=== PATIENT | female | born 1955 | race African-American/Black ===

== ENCOUNTER 2017-03-23 10:29 | Emergency (ER) | payer BC ==
[~2017-03-23] VITALS: Ht 172.7 cm; Wt 95.3 kg
[2017-03-23 10:39] VITALS: BP 144/67
[2017-03-23] MEDS ORDERED: CETIRIZINE HCL 10 MG TABLET. PO STA (11:16)
[2017-03-23] MEDS ORDERED: predniSONE 20 MG TABLET PO ONE (11:30)
[2017-03-23] MEDS ORDERED: PRED50TA PO (11:56)
--- NOTE | 2017-03-23 11:57 | PHYS DOC ---
Past Medical History Past Medical History: Other Additional Past Medical Histor: BREAST CA Past Surgical History: , Tonsillectomy Additional Past Surgical Histo: LEFT MASTECTOMY, BREAST LUMPECTOMY Alcohol Use: Rarely Drug Use: None Adult General Chief Complaint Chief Complaint: ALLERGIC REACTION HPI HPI Patient is a 61 year old female with history of left breast counselor and mastectomy done a couple days ago who got discharged from [facility] 3 days ago post mastectomy who presents today with a rash and itching for three days. Patient denies knowledge of anything that could've caused this rash. Review of Systems Review of Systems Constitutional: Denies fever or chills [] Eyes: Denies change in visual acuity, redness, or eye pain [] Musculoskeletal: Denies back pain or joint pain [] Integument: rash Neurologic: Denies headache, focal weakness or sensory changes [] Endocrine: Denies polyuria or polydipsia [] Current Medications Current Medications Current Medications Medications (Trade) Dose Ordered Sig/Isis Start Time Stop Time Status Last Admin Dose Admin Cetirizine HCl (ZyrTEC) 10 mg 1X STAT 03/23/17 11:16 03/23/17 11:18 DC 03/23/17 11:32 10 MG Prednisone (Prednisone) 60 mg 1X ONCE 03/23/17 11:30 03/23/17 11:31 DC 03/23/17 11:32 60 MG Allergies Allergies Allergies Coded Allergies Type Severity Reaction Last Updated Verified Penicillins Allergy Intermediate 03/23/17 Yes Sulfa (Sulfonamide Antibiotics) Allergy Intermediate Rash 03/23/17 Yes Physical Exam Physical Exam Constitutional: Well developed, well nourished, no acute distress, non-toxic appearance. [] HENT: Normocephalic, atraumatic, bilateral external ears normal, oropharynx moist, no oral exudates, nose normal. [] Abdomen: Bowel sounds normal, soft, no tenderness, no masses, no pulsatile masses. [] Skin: Patient has mild amount of erythema is papular rash on her upper tarso bilaterally, upper and lower extremities. Left breast with a drain postmastectomy. No signs of infection on the breast area Back: No tenderness, no CVA tenderness. [] Extremities: No tenderness, no cyanosis, no clubbing, ROM intact, no edema. [] Neurologic: Alert and oriented X 3, normal motor function, normal sensory function, no focal deficits noted. [] Psychologic: Affect normal, judgement normal, mood normal. [] Current Patient Data Vital Signs Vital Signs Date Time Temp Pulse Resp B/P (MAP) Pulse Ox O2 Delivery O2 Flow Rate FiO2 03/23/17 10:39 98.8 79 20 96 Room Air 98.8 EKG EKG [] Radiology/Procedures Radiology/Procedures [] Course & Med Decision Making Course & Med Decision Making Pertinent Labs and Imaging studies reviewed. (See chart for details) Patient is in the ED with a rash that began 3 days ago after being discharged from in the hospital post left mastectomy. It's unknown what is causing her rash. She'll be put on prednisone for 5 days. She is to follow-up with her doctor next week. Dragon Disclaimer Dragon Disclaimer This electronic medical record was generated, in whole or in part, using a voice recognition dictation system. Departure Departure Impression: Primary Impression: Contact dermatitis Disposition: 01 HOME, SELF-CARE Condition: STABLE Referrals: FRANCOIS FORREST MD (PCP) follow up with your doctor in one week Patient Instructions: Contact Dermatitis Additional Instructions: You were seen for contact dermatitis rash. We'll put you on prednisone for 5 days. Take Benadryl every 4 hours as needed for the rash. If Benadryl is making you sleepy consider taking Claritin or Zyrtec. Follow-up with your doctor next week. Scripts Prednisone (PREDNISONE) 50 Mg Tablet 1 TAB PO DAILY, #4 TAB Prov: TIGRE GANT APRN 03/23/17 Problem Qualifiers Primary Impression: Contact dermatitis Contact dermatitis type: unspecified Contact dermatitis trigger: unspecified trigger Qualified Codes: L25.9 - Unspecified contact dermatitis, unspecified cause TIGRE GANT MANAGER BOOK Mar 23, 2017 11:56
== END 2017-03-23 12:03 | disposition home or self-care (01) ==
LOC: ER 10:29
DX: L25.9 Unspecified contact dermatitis, unspecified cause (principal); Z90.12 Acquired absence of left breast and nipple; Z88.2 Allergy status to sulfonamides; Z88.0 Allergy status to penicillin
CPT/HCPCS: 99283; J7512